=== PATIENT | male | born 1995 | race Caucasian/White ===

== ENCOUNTER 2021-04-18 11:42 | Emergency (ER) | payer MEDICAID ==
[~2021-04-18] VITALS: Ht 180.3 cm; Wt 72.7 kg
[2021-04-18 14:25] VITALS: BP 131/70
== END 2021-04-18 14:31 | disposition home or self-care (01) ==
LOC: EMS 11:42
DX: J02.8 Acute pharyngitis due to other specified organisms (principal); B97.89 Other viral agents as the cause of diseases classified elsewhere; F12.90 Cannabis use, unspecified, uncomplicated; Z20.822 Contact with and (suspected) exposure to COVID-19
CPT/HCPCS: 87430; 99283; U0003